=== PATIENT | female | born 1945 | race Caucasian/White ===

== ENCOUNTER 2017-02-14 17:18 | Emergency (ER) | payer MEDICARE ==
[2017-02-14] MEDS ORDERED: Aspirin Low Dose CHEW TAB* 81 MG PO ONE (18:23)
[2017-02-14 18:46] LABS: Hematocrit 35 % (35-47); Hemoglobin 11.6 g/dl (12.0-16.0); Mean Corpuscular HGB Conc 33 g/dl (31-36); Mean Corpuscular Hemoglobin 25 pg (27-31); Mean Corpuscular Volume 76 fL (80-97); Mean Platelet Volume 8 um3 (7.4-10.4); Red Blood Count 4.59 10^6/ul (4.0-5.4); Red Cell Distribution Width 15 % (10.5-15); White Blood Count 8.9 10^3/ul (3.5-10.8)
[2017-02-14 19:06] LABS: Albumin 4.1 g/dL (3.2-5.2); BUN/Creatinine Ratio 27.4 (8-20); Calcium 9.6 mg/dL (8.6-10.3); EGFR African American 121.3 (>60); EGFR Non-African American 94.4 (>60); Globulin 3.6 g/dL (2-4); Magnesium 1.7 mg/dL (1.9-2.7); Potassium 4.1 mmol/L (3.5-5.0); Total Bilirubin 0.4 mg/dL (0.2-1.0); Total Protein 7.7 g/dL (6.4-8.9)
--- NOTE | 2017-02-14 19:10 | RAD ---
Indication: Chest pain since 1300 hours. History of benign lung nodules. Comparison: No prior exams available on the [facility] PACS for comparison. Technique: Upright AP 1850 hours Report: Clear lungs and pleural spaces. Negative for pneumothorax. The heart, pulmonary vasculature, and mediastinal contours are unremarkable. Unremarkable osseous structures and soft tissue contours. IMPRESSION: No evidence for acute intrathoracic disease.
[2017-02-14 19:30] LABS: T4 9.56 mcg/mL (6.09-12.23)
[2017-02-14 19:48] LABS: TSH (Thyroid Stimulating Horm) 3.03 mcIU/mL (0.34-5.60)
[2017-02-14 19:50] VITALS: BP 154/84
--- NOTE | 2017-02-15 02:13 | ED ---
Monica Buchanan Edward, scribed for Laura Choudhury MD on 02/14/17 at 1818 . HPI Chest Pain - HPI Summary HPI Summary: 71 y/o female presents to ED c/o CP in the mid-sternal region starting at around 13:00 this afternoon. Pt also c/o numbness/tingling in fingers. Associated sx: nausea. Denies calf pain. PMHx heart murmur, DM, HTN, melanoma on her RLE. FHx heart disease - father when he was 32. Past medications reviewed on visit - pt takes medication to control her cholesterol. Pt has no history of smoking. A couple of weeks ago the pt states her blood sugar dropped to a 63. - History of Current Complaint Chief Complaint: EDChestPainROMI Hx Obtained From: Patient Onset/Duration: Started Hours Ago Pain Intensity: 6 Pain Scale Used: 0-10 Numeric Chest Pain Location: Mid Sternal Chest Pain Radiates: Yes Chest Pain Radiates To:: Arm - Numbness and tingling in fingers Aggravating Factor(s): Nothing Alleviating Factor(s): Nothing Associated Signs and Symptoms: Positive: Chest Pain, Numbness, Tingling - Fingers, Nausea - Allergy/Home Medications Home Medications: Home Medications Benzonatate CAP* [Tessalon 100 MG CAP*] 100 mg PO TID PRN 02/14/17 [History Confirmed 02/14/17] Citalopram TAB* [CeleXA TAB*] 40 mg PO DAILY 02/14/17 [History Confirmed ] Doxycycline TAB(NF) [Doxycycline (NF)] 100 mg PO BID 02/14/17 [History Confirmed 02/14/17] Lansoprazole CAP (NF) [Prevacid CAP (NF)] 30 mg PO DAILY 02/14/17 [History Confirmed 02/14/17] Loratadine [Loratadine Allergy Relief] 10 mg PO DAILY PRN 02/14/17 [History Confirmed 02/14/17] Melatonin 3 mg PO DAILY PRN 02/14/17 [History Confirmed 02/14/17] Montelukast Sodium TAB* [Singulair TAB*] 10 mg PO DAILY 02/14/17 [History Confirmed 02/14/17] Ramipril CAP* [Altace CAP*] 10 mg PO DAILY 02/14/17 [History Confirmed 02/14/17] Simvastatin TAB(NF) [Zocor(NF)] 20 mg PO BEDTIME 02/14/17 [History Confirmed 01/23] glipiZIDE TAB.XL* [Glucotrol XL*] 10 mg PO DAILY 02/14/17 [History Confirmed 01/23] metFORMIN* [Glucophage 500 MG TAB *] 1,000 mg PO BID 02/14/17 [History Confirmed 02/14/17] PMH/Surg Hx/FS Hx/Imm Hx Previously Healthy: No Endocrine/Hematology History: Reports: Hx Diabetes Cardiovascular History: Reports: Hx Hypertension, Other Cardiovascular Problems/ Disorders - Heaert murmur - Cancer History Cancer Type, Location and Year: Melanoma @ RLE - Surgical History Surgery Procedure, Year, and Place: Melanoma removal Infectious Disease History: Yes Infectious Disease History: Denies: Traveled Outside the [place] in Last 30 Days - Family History Known Family History: Positive: Cardiac Disease - Social History Hx Tobacco Use: No Smoking Status (MU): Never Smoked Tobacco Physical Exam - Summary Physical Exam Summary: Appearance: Well-appearing, no pain distress, Well-nourished Skin: Warm, color reflects adequate perfusion Head: Normal Head/Face Eyes: Conjunctiva clear ENT: Normal Neck: Supple Respiratory: Lungs clear, Normal breath sounds, no respiratory distress Cardio: RRR, No murmur, pulses normal, brisk capillary refill Abdomen: soft, nontender Bowel sounds: present Musculoskeletal: Strength Intact/ ROM intact Neuro: Alert, muscle tone normal, facial symmetry, speech normal, sensory/motor intact Triage Information Reviewed: Yes Vital Signs On Initial Exam: Initial Vitals Temp Pulse Resp BP Pulse Ox 97.1 F 81 19 160/90 97 02/14/17 17:23 02/14/17 17:23 02/14/17 17:23 02/14/17 17:23 02/14/17 17:23 Vital Signs Reviewed: Yes Diagnostics - Vital Signs Vital Signs Temp Pulse Resp BP Pulse Ox 02/14/17 17:23 97.1 F 81 19 160/90 97 - Laboratory Lab Results: Lab Results 02/14/17 02/14/17 02/14/17 Range/Units 18:33 18:33 18:33 WBC 8.9 (3.5-10.8) 10^3/ul RBC 4.59 (4.0-5.4) 10^6/ul Hgb 11.6 L (12.0-16.0) g/dl Hct 35 (35-47) % MCV 76 L (80-97) fL MCH 25 L (27-31) pg MCHC 33 (31-36) g/dl RDW 15 (10.5-15) % Plt Count 187 (150-450) 10^3/ul MPV 8 (7.4-10.4) um3 Neut % (Auto) 65.1 (38-83) % Lymph % (Auto) 27.0 (25-47) % [place] % (Auto) 4.1 (1-9) % Eos % (Auto) 3.1 (0-6) % Baso % (Auto) 0.7 (0-2) % Absolute Neuts (auto) 5.8 (1.5-7.7) 10^3/ul Absolute Lymphs (auto) 2.4 (1.0-4.8) 10^3/ul Absolute Monos (auto) 0.4 (0-0.8) 10^3/ul Absolute Eos (auto) 0.3 (0-0.6) 10^3/ul Absolute Basos (auto) 0.1 (0-0.2) 10^3/ul Absolute Nucleated RBC 0 10^3/ul Nucleated RBC % 0 INR (Anticoag Therapy) (0.89-1.11) D-Dimer, Quantitative (Less Than 230) ng/mL Sodium 137 (133-145) mmol/L Potassium 4.1 (3.5-5.0) mmol/L Chloride 101 (101-111) mmol/L Carbon Dioxide 26 (22-32) mmol/L Anion Gap 10 (2-11) mmol/L BUN 17 (6-24) mg/dL Creatinine 0.62 (0.51-0.95) mg/dL Est GFR ( Amer) 121.3 (>60) Est GFR (Non-Af Amer) 94.4 (>60) BUN/Creatinine Ratio 27.4 H (8-20) Glucose 124 H (70-100) mg/dL Lactic Acid (0.5-2.0) mmol/L Calcium 9.6 (8.6-10.3) mg/dL Magnesium 1.7 L (1.9-2.7) mg/dL Total Bilirubin 0.40 (0.2-1.0) mg/dL AST 35 (13-39) U/L ALT 33 (7-52) U/L Alkaline Phosphatase 70 (34-104) U/L Total Creatine Kinase 47 (10-223) U/L CK-MB (CK-2) 2.0 (0.6-6.3) ng/mL Troponin I 0.00 (<0.04) ng/mL B-Natriuretic Peptide 72 ( - 100) pg/mL Total Protein 7.7 (6.4-8.9) g/dL Albumin 4.1 (3.2-5.2) g/dL Globulin 3.6 (2-4) g/dL Albumin/Globulin Ratio 1.1 (1-3) TSH 3.03 (0.34-5.60) mcIU/mL Thyroxine (T4) 9.56 (6.09-12.23) mcg/mL 02/14/17 02/14/17 Range/Units 18:33 18:33 WBC (3.5-10.8) 10^3/ul RBC (4.0-5.4) 10^6/ul Hgb (12.0-16.0) g/dl Hct (35-47) % MCV (80-97) fL MCH (27-31) pg MCHC (31-36) g/dl RDW (10.5-15) % Plt Count (150-450) 10^3/ul MPV (7.4-10.4) um3 Neut % (Auto) (38-83) % Lymph % (Auto) (25-47) % [place] % (Auto) (1-9) % Eos % (Auto) (0-6) % Baso % (Auto) (0-2) % Absolute Neuts (auto) (1.5-7.7) 10^3/ul Absolute Lymphs (auto) (1.0-4.8) 10^3/ul Absolute Monos (auto) (0-0.8) 10^3/ul Absolute Eos (auto) (0-0.6) 10^3/ul Absolute Basos (auto) (0-0.2) 10^3/ul Absolute Nucleated RBC 10^3/ul Nucleated RBC % INR (Anticoag Therapy) 1.01 (0.89-1.11) D-Dimer, Quantitative < 200 (Less Than 230) ng/mL Sodium (133-145) mmol/L Potassium (3.5-5.0) mmol/L Chloride (101-111) mmol/L Carbon Dioxide (22-32) mmol/L Anion Gap (2-11) mmol/L BUN (6-24) mg/dL Creatinine (0.51-0.95) mg/dL Est GFR ( Amer) (>60) Est GFR (Non-Af Amer) (>60) BUN/Creatinine Ratio (8-20) Glucose (70-100) mg/dL Lactic Acid 2.1 H* (0.5-2.0) mmol/L Calcium (8.6-10.3) mg/dL Magnesium (1.9-2.7) mg/dL Total Bilirubin (0.2-1.0) mg/dL AST (13-39) U/L ALT (7-52) U/L Alkaline Phosphatase (34-104) U/L Total Creatine Kinase (10-223) U/L CK-MB (CK-2) (0.6-6.3) ng/mL Troponin I (<0.04) ng/mL B-Natriuretic Peptide ( - 100) pg/mL Total Protein (6.4-8.9) g/dL Albumin (3.2-5.2) g/dL Globulin (2-4) g/dL Albumin/Globulin Ratio (1-3) TSH (0.34-5.60) mcIU/mL Thyroxine (T4) (6.09-12.23) mcg/mL Result Diagrams: 02/14/17 18:33 02/14/17 18:33 Lab Statement: Any lab studies that have been ordered have been reviewed, and results considered in the medical decision making process. - Radiology CXR Xray Interpretation: No Acute Changes - No evidence for acute intrathoracic disease. Radiology Interpretation Completed By: Radiologist - Additional Comments Diagnostic Additional Comments: EKG - SR @ 79 BPM. NORMAL AV, IV, QTC. Negative axis -24. No prior EKG to compare. Re-Evaluation - Re-Evaluation 1 Re-Evaluation Time: 19:35 Change: Improved - Pt is now pain free and will be d/c home. Chest Pain Course/Dx - Course Assessment/Plan: 71 y/o female presents to ED c/o CP in the mid-sternal region starting at around 13:00 this afternoon. Pt also c/o numbness/tingling in fingers. Associated sx: nausea. Denies calf pain. PMHx heart murmur, DM, HTN, melanoma on her RLE. FHx heart disease - father when he was 32. Past medications reviewed on visit - pt takes medication to control her cholesterol. Pt has no history of smoking. A couple of weeks ago the pt states her blood sugar dropped to a 63. Made aware of lactate - 2.1 @ 19:08. CXR SHOWS No evidence for acute intrathoracic disease.Pt had negative stress test 4 months ago. Pt will be d/c home. Pt is agreeable. - Diagnoses Provider Diagnoses: Chest pain Discharge - Discharge Plan Condition: Stable Disposition: HOME Patient Education Materials: Chest Pain (ED) Referrals: Sola Landrum MD [Primary Care Provider] - 2 Days (call in the am to arrange to be seen [facility].) Additional Instructions: Return to the ER if any new or worsening symptoms. The documentation as recorded by the Monica segundo Edward accurately reflects the service I personally performed and the decisions made by , Laura Choudhury MD.
== END 2017-02-14 19:48 | disposition home or self-care (01) ==
LOC: ED 17:18
DX: R07.9 Chest pain, unspecified (principal); E11.9 Type 2 diabetes mellitus without complications
CPT/HCPCS: 36415; 71010; 80053; 82550; 82553; 83605; 83735; 83880; 84436; 84443; 84484; 85025; 85379; 85610; 93005; 99282